=== PATIENT | male | born 1935 | race Native Hawaiian/Other Pacific Islander ===

== ENCOUNTER 2020-12-28 10:41 | Outpatient (CLI) | payer OTHER | END 2020-12-28 21:43 | disposition home or self-care (01) | LOC: INF 10:41 | PROVIDERS: ATTEND Internal Medicine | DX: Z23 Encounter for immunization (principal) | CPT/HCPCS: 96372 ==

== ENCOUNTER 2021-01-25 10:42 | Outpatient (CLI) | payer OTHER | END 2021-01-25 21:09 | disposition home or self-care (01) | LOC: INF 10:42 | PROVIDERS: ATTEND Internal Medicine | DX: Z23 Encounter for immunization (principal) | CPT/HCPCS: 96372 ==

== ENCOUNTER 2023-02-05 13:50 | Outpatient (CLI) | payer OTHER | END 2023-02-05 19:28 | disposition home or self-care (01) | LOC: RAD 13:50 | PROVIDERS: ATTEND Internal Medicine | DX: M51.36 Other intervertebral disc degeneration, lumbar region (principal) ==